=== PATIENT | male | born 1960 | race Caucasian/White ===

== ENCOUNTER 2023-08-29 00:10 | Outpatient (CLI) | payer MEDICARE, MEDICAID, SELFPAY | END 2023-08-29 00:11 | disposition home or self-care (01) | LOC: AMB 08-30 11:54 | PROVIDERS: PCP Family Medicine; Visit Provider Family Medicine | DX: S09.90XA Unspecified injury of head, initial encounter (principal); W18.30XA Fall on same level, unspecified, initial encounter; Y92.481 Parking lot as the place of occurrence of the external cause | CPT/HCPCS: A0425; A0427 ==

== ENCOUNTER 2023-08-29 00:43 | Inpatient (IN) | payer MEDICARE, MEDICAID, SELFPAY ==
[2023-08-29] VITALS (12 sets, daily range): BP systolic 136–179; BP diastolic 69–137; PULSE 60–100; RESP 14–16; TEMP 36–36.8; O2SAT 95–100; BMI 25.8; BMI 16.8
--- NOTE | 2023-08-29 01:18 | ED_ITS ---
HPI - General Adult General Chief complaint: Fall/Minor Trauma Stated complaint: Fall, hyperglycemia Time Seen by Provider: 08/29/23 00:53 Source: patient and EMS Mode of arrival: ambulatory History of Present Illness HPI narrative: 63-year-old diabetic male presents to the emergency department for evaluation after a fall. Patient reports that he slipped on ice in the [employer] parking lot, bystanders called EMS. He had asked them not to. He does admit to drinking ?a beer and a half? tonight. Denies any chest pain, syncope or dizziness prior to the fall. Of note is unseasonally warm this time of year and there really is no ice in the parking lot. EMS reports that his blood sugar was high but he is able to answer questions. There is no evidence of seizure activity according to bystanders. He does not take any blood thinners. He reports that his primary care provider is through [facility]. He has both hard of hearing and seems to have difficulty answering questions based on some intoxication and also some declining cognition. I reviewed the outside records and see that there has been some concern with erratic behavior in his apartment complex. He reports that he is his own guardian. Of note this is in the middle of the night, approximately 1:00 a.m. that he has brought in. He denies any drug use. He denies any history of psychiatric problems. He does report that he has a brother and [id number] that live in town. When I ask if they help take care of him, he Dodgers the question and is unable to give me a straight answer. His responses are otherwise slow and does not answer questions quite appropriately. He reports some mild pain to the back of his head and does have a laceration from his fall there. Denies pain in other parts of the body. Denies fevers or recent illness, no recent chest pain. He does have a history of pacemaker for an irregular heart rhythm but he cannot tell me any more details related to this. Her parts that he has a history of diabetes, reports compliance with his medications but then reports that he only takes his insulin ?when needed? he cannot tell me the last time that he took it. He tells me that he does not have any allergies but I see many listed in his medication list. He reports use of only glipizide and metformin but there are many other medications listed from his outside records. He denies drug use. No history of other recent falls or injuries. No anticoagulants. Past medical history from patient seems unreliable. Notable for hyperlipidemia, hypertension, suspected coronary artery disease and type 2 diabetes. Reports that he is a nonsmoker, has been drinking alcohol tonight. Reports that it was ?earlier?. ROS is notable for the fall which per his description and EMS does sound purely mechanical as well as laceration to the left occipital area. Related Data Home Medications Medication Instructions Recorded Confirmed acetaminophen PO 08/29/23 aspirin 81 mg capsule 81 mg PO DAILY 08/29/23 08/29/23 dapagliflozin propanediol 10 mg 10 mg PO DAILY 08/29/23 08/29/23 tablet (Farxiga) glipizide 10 mg PO BID 08/29/23 08/29/23 hydralazine 10 mg tablet 10 mg PO TID 08/29/23 08/29/23 insulin glargine 100 unit/mL (3 10 unit subcut QPM 08/29/23 08/29/23 mL) subcutaneous pen (Lantus Solostar U-100 Insulin) isosorbide mononitrate 30 mg 30 mg PO DAILY 08/29/23 08/29/23 tablet,extended release 24 hr linagliptin 5 mg tablet (Tradjenta) 5 mg PO DAILY 08/29/23 08/29/23 nitroglycerin 0.4 mg sublingual 0.4 mg sublingual Q5-15M PRN 08/29/23 08/29/23 tablet rosuvastatin 20 mg tablet (Crestor) 20 mg PO DAILY 08/29/23 08/29/23 Allergies Allergy/AdvReac Type Severity Reaction Status Date / Time pravastatin Allergy Severe Angioedema Verified 08/29/23 01:07 atenolol Allergy Mild Itchiness Verified 08/29/23 01:07 hydrochlorothiazide AdvReac Intermediate Hyponatremi Verified 08/29/23 01:07 a irbesartan AdvReac Intermediate Hyperkalemi Verified 08/29/23 01:07 a simvastatin AdvReac Intermediate Elevated Verified 08/29/23 01:07 Creatine Kinase amlodipine AdvReac Mild Insomnia Verified 08/29/23 01:07 atorvastatin AdvReac Mild Diarrhea Verified 08/29/23 01:07 lisinopril AdvReac Mild Cough Verified 08/29/23 01:07 zolpidem AdvReac Mild Sleepwalkin Verified 08/29/23 01:07 g furosemide AdvReac Unknown Verified 08/29/23 01:07 Exam Const: Vital Signs, click to edit/add: Vital Signs - 24 hr 08/29/23 00:44 08/29/23 02:30 Temperature 96.8 F L Pulse Rate 80 Pulse Rate [Pulse Oximeter] 71 Respiratory Rate 14 16 Blood Pressure 145/82 H Blood Pressure [Ri ght Upper Arm] 156/137 H Pulse Oximetry 100 95 Oxygen Delivery Me thod Room Air Documenting provider has reviewed patient's vital signs: yes Common normals: no apparent distress and alert Orientation/consciousness: Yes awake, Yes oriented to person, Yes oriented to place and Yes oriented to time Other: Hard of hearing and some mildly impaired cognition which seems chronic. Does fit with outside records. HENMT: Common normals: TM's normal bilaterally Head and scalp: normal to inspection Face and sinus: normal facial exam Tympanic membrane: TM's normal bilaterally Mouth: oral and palatal mucosa normal Throat: posterior oropharynx normal Other: 2.5 cm vertical laceration, dermal depth slight oozing to the left occipital area. Consistent with fall history. No other areas of injury. No significant hematoma or skull depression. Eye: Common normals: PERRL, EOMs intact bilaterally and conjunctivae normal General eye: normal appearance of both eyes Conjunctiva: conjunctiva(e) normal Pupil: PERRL Neck & C-Spine: Common normals: full ROM, no lymphadenopathy and no meningeal signs General: normal visual inspection Cervical spine: cervical ROM normal; no cervical spine tenderness Chest: Common normals: inspection of chest normal and palpation of chest normal Resp: Common normals: normal respiratory effort, no use of accessory muscles and clear to auscultation bilaterally Effort & inspection: able to speak in complete sentences Auscultation: clear to auscultation bilaterally Cardio: Common normals: regular rate, regular rhythm, S1 normal heart sound, S2 normal heart sound and no murmurs Rate: regular rate Rhythm: regular rhythm Heart sounds: S1 normal and S2 normal GI: Common normals: Normal to inspection, nondistended, normoactive bowel sounds present, soft to palpation, non-tender, no hepatosplenomegaly and no masses Palpation: soft and no hepatosplenomegaly Back & Pelvis: Common normals: thoracic and lumbar spine normal to inspection and no thoracic nor lumbar tenderness Extremity: Common normals: normal to inspection, full ROM, normal capillary refill and no pedal edema Neuro: Sensorium/orientation: awake, alert, oriented to person, oriented to place and oriented to time Meningeal signs: no meningeal signs Cranial nerves: CN normal except as noted Motor exam: strength 5/5 throughout and no movement abnormalities noted Other: Mild essential tremor noted Psych: Appearance: grossly normal Attitude: engaged Insight: limited Judgement: limited Skin: Narrative: Other than the laceration to the left occiput, no other areas of bruising, trauma or injury noted. Course Course ED Course: Mechanical sounding fall, cannot exclude cardiac event, neurological event, intoxication. I do have concerns about him long-term based on the descriptions from his outpatient provider but it sounds as though he is fairly close to his baseline. I would was told that his blood sugar was high based on EMS report, I suspect that he is not properly using his insulin and other medications. Will need closure of occipital wound. I do recommend alcohol level, EKG, troponin, basic electrolytes and labs. Will plan to give 10 units of subcu regular insulin if confirmatory blood sugar is elevated. Update: Blood sugar confirmed over 500. Will give 10 units subQ insulin x1. Procedure: Laceration repair. Wound was cleansed with Hibiclens, originally thought was more vertical, it is a bit still late now that I have been able to fully examine and is 2.5 cm long by about 1 cm wide. No evidence of foreign body, dermal thickness with no skull depression or large hematoma. Patient has hair that is about 8 in long. Getting stitches or arielle removed during the upcoming might be challenging for him. We discussed risks and benefits and elected to do a hair apposition technique closure. He was agreeable to this. This was performed with 2 throws and 2 tubes of Dermabond with good wound reapproximation and hemostasis. Well tolerated. Discussed wound care. Reevaluation(s) Time of Reevaluation #1: 02:26 Reevaluation #1: Updated patient on findings, need for hospitalization. His mentation does seem to be improving a little. He can better answer questions and had some witty comments. Inside I would say is moderate at this point. We started a bolus of fluids, the Dermabond is holding well and hemostatic on the back of his head. Will plan for repeat troponin and lactate. He is headed over to CT. Anticipate reviewing CT and calling hospitalist for admission. Time of Reevaluation #2: 03:09 Reevaluation #2: Hospitalist updated. Admission accepted. Borderline troponin, repeat pending. Hospitalist agrees that we should trend this. Patient continues to not have any chest pain. I believe the etiology of his acidosis is hyperglycemia but this could be multifactorial. He is likely dehydrated and still taking some metformin. I suspect there could be an acute illness that triggered this but his swabs are negative for infection. He is afebrile and not tachycardic. He has been given 1 L of fluids. Hospitalist requested addition of a serum osmolarity, this is ordered and pending. I do recommend an echo, will defer to hospitalist team to order and manage. Hospitalist team will determine next steps in management for hyperglycemia. Has been given 10 units of subcu insulin and IV fluids as initial management. The head CT shortly shows more degenerative changes than would be expected in with the reported erratic behavior in his outpatient notes, I do question if he is appropriate for continued independent living. These would all be good questions to answer once his hyperglycemia is corrected, would recommend mental status examination. Vital Signs Vital signs: Initial Vital Signs Temperature 96.8 F L 08/29/23 00:44 Temperature Source Temporal Artery Scan 08/29/23 00:44 Pulse Rate 71 08/29/23 00:44 Respiratory Rate 14 08/29/23 00:44 Blood Pressure 156/137 H 08/29/23 00:44 Blood Pressure Mean 143 H 08/29/23 00:44 Blood Pressure Position Supine 08/29/23 00:44 Pulse Oximetry 100 08/29/23 00:44 Oxygen Delivery Method Room Air 08/29/23 00:44 Vital Signs Temperature 96.8 F L 08/29/23 00:44 Pulse Rate 71 08/29/23 00:44 Respiratory Rate 14 08/29/23 00:44 Blood Pressure 156/137 H 08/29/23 00:44 Pulse Oximetry 100 08/29/23 00:44 Oxygen Delivery Method Room Air 08/29/23 00:44 Temperature 96.8 F L 08/29/23 00:44 Pulse Rate 80 08/29/23 02:30 Respiratory Rate 16 08/29/23 02:30 Blood Pressure 145/82 H 08/29/23 02:30 Pulse Oximetry 95 08/29/23 02:30 Oxygen Delivery Method Room Air 08/29/23 00:44 Medications Administered Medications: Generic Name Dose Route Start Last Admin Trade Name Tima PRN Reason Stop Dose Admin Insulin Human Regular 10 unit 08/29/23 01:28 08/29/23 01:40 Insulin Regular 100 Unit/Ml Inj SUBCUT 08/29/23 01:29 10 unit ONCE ONE Administration Medical Decision Making Lab Data Lab results reviewed: Yes I reviewed the patient's lab results Lab results narrative: Lactic acidosis with hyperglycemia. Elevated troponin without chest pain, negative viral swabs. Labs: Lab Results 08/29/23 08/29/23 08/29/23 Range/Units 01:13 01:22 01:42 WBC 8.18 (4.50-11.00) K/uL RBC 4.05 L (4.30-5.90) m/uL Hgb 12.3 L (13.5-17.5) gm/dL Hct 36.4 L (37.0-53.0) % MCV 90 (80-100) fL MCH 30 (26-34) pg MCHC 34 (32-36) gm/dL RDW Coeff of Jitendra 12.5 (11.5-15.5) % Plt Count 228 (140-440) K/uL Neut % (Auto) 86.8 H (42.0-72.0) % Lymph % (Auto) 5.9 L (20-44) % [place] % (Auto) 5.9 (0.0-11.0) % Eos % (Auto) 0.2 (0.0-7.0) % Baso % (Auto) 0.1 (0.0-3.0) % Neut # (Auto) 7.10 H (1.7-7.0) K/uL Lymph # (Auto) 0.50 L (0.90-2.90) K/uL [place] # (Auto) 0.50 (0.00-0.90) K/UL Eos # (Auto) 0.02 (0.00-0.50) K/uL Baso # (Auto) 0.01 (0.00-0.30) K/uL Abs Immat Gran (auto) 0.09 (0.00-0.30) K/uL Imm/Tot Granulo (auto) 1.1 % VBG pH 7.192 L* (7.32-7.43) VBG pCO2 49 (40-50) mmHG VBG pO2 30.6 (25-47) mmHG VBG HCO3 19 L (21-28) mmol/L Sodium 131 L (135-149) mmol/L Potassium 5.2 H (3.6-5.1) mmol/L Chloride 102 (96-114) mmol/L Carbon Dioxide 16 L (20-32) mmol/L Anion Gap 13 (7-15) mEq/L BUN 45 H (7-30) mg/dL Creatinine 2.3 H (0.5-1.5) mg/dL Estimated Creat Clear 32.02 Estimated GFR 31 ml/min Glucose 617 H* (60-115) mg/dL Lactate 5.7 H* (0.5-1.9) mmol/L Calcium 8.6 (8.4-10.6) mg/dL Total Bilirubin 0.3 (0.1-1.5) mg/dL AST 29 (12-35) U/L ALT 21 (4-50) U/L Alkaline Phosphatase 92 (40-150) U/L Troponin I 0.08 H* (0.01-0.04) ng/mL C-Reactive Protein < 0.5 L (0.5-1.0) mg/dL Total Protein 6.9 (6.0-8.3) g/dL Albumin 4.1 (3.3-5.0) g/dL Urine Color (Yellow) Urine Appearance (Clear) Urine pH (5.0-8.5) Ur Specific [place] (1.000-1.030) Urine Protein (Negative) Urine Glucose (UA) (Negative) Urine Ketones (Negative) Urine Blood (Negative) Urine Nitrite (Negative) Urine Bilirubin (Negative) Urine Urobilinogen (0.2-1.0) Ur Leukocyte Esterase (Negative) Urine RBC (0-2) Urine WBC (0-5) Ur Squamous Epith Cells (None-Few) Urine Bacteria (None) Urine Opiates Screen (Negative) Ur Oxycodone Screen (Negative) Urine Methadone Screen (Negative) Ur Barbiturates Screen (Negative) U Tricyclic Antidepress (Negative) Ur Phencyclidine Scrn (Negative) Ur Amphetamines Screen (Negative) U Methamphetamines Scrn (Negative) U Benzodiazepines Scrn (Negative) Urine Cocaine Screen (Negative) U Marijuana (THC) Screen (Negative) Ur Drug Screen Comment Ethyl Alcohol 0.03 (0.01-0.03) % SARS-CoV-2 (PCR) Negative SARS-CoV-2 (Negative) Influenza Type A (PCR) Negative PCR FLU A (Negative) Influenza Type B (PCR) Negative PCR FLU B (Negative) RSV (PCR) Negative PCR RSV (Negative) Lab Acknowledgement Test Added POC Troponin I 0.11 H (0.01-0.04) ng/ml 08/29/23 08/29/23 Range/Units 01:58 02:04 WBC (4.50-11.00) K/uL RBC (4.30-5.90) m/uL Hgb (13.5-17.5) gm/dL Hct (37.0-53.0) % MCV (80-100) fL MCH (26-34) pg MCHC (32-36) gm/dL RDW Coeff of Jitendra (11.5-15.5) % Plt Count (140-440) K/uL Neut % (Auto) (42.0-72.0) % Lymph % (Auto) (20-44) % [place] % (Auto) (0.0-11.0) % Eos % (Auto) (0.0-7.0) % Baso % (Auto) (0.0-3.0) % Neut # (Auto) (1.7-7.0) K/uL Lymph # (Auto) (0.90-2.90) K/uL [place] # (Auto) (0.00-0.90) K/UL Eos # (Auto) (0.00-0.50) K/uL Baso # (Auto) (0.00-0.30) K/uL Abs Immat Gran (auto) (0.00-0.30) K/uL Imm/Tot Granulo (auto) % VBG pH (7.32-7.43) VBG pCO2 (40-50) mmHG VBG pO2 (25-47) mmHG VBG HCO3 (21-28) mmol/L Sodium (135-149) mmol/L Potassium (3.6-5.1) mmol/L Chloride (96-114) mmol/L Carbon Dioxide (20-32) mmol/L Anion Gap (7-15) mEq/L BUN (7-30) mg/dL Creatinine (0.5-1.5) mg/dL Estimated Creat Clear Estimated GFR ml/min Glucose (60-115) mg/dL Lactate (0.5-1.9) mmol/L Calcium (8.4-10.6) mg/dL Total Bilirubin (0.1-1.5) mg/dL AST (12-35) U/L ALT (4-50) U/L Alkaline Phosphatase (40-150) U/L Troponin I (0.01-0.04) ng/mL C-Reactive Protein (0.5-1.0) mg/dL Total Protein (6.0-8.3) g/dL Albumin (3.3-5.0) g/dL Urine Color Yellow (Yellow) Urine Appearance Clear (Clear) Urine pH 5.0 (5.0-8.5) Ur Specific [place] 1.015 (1.000-1.030) Urine Protein 3+ A (Negative) Urine Glucose (UA) 2+ A (Negative) Urine Ketones Negative (Negative) Urine Blood 1+ A (Negative) Urine Nitrite Negative (Negative) Urine Bilirubin Negative (Negative) Urine Urobilinogen 0.2 (0.2-1.0) Ur Leukocyte Esterase Negative (Negative) Urine RBC 0-2 (0-2) Urine WBC 0-2 (0-5) Ur Squamous Epith Cells Few (None-Few) Urine Bacteria None (None) Urine Opiates Screen Negative (Negative) Ur Oxycodone Screen Negative (Negative) Urine Methadone Screen Negative (Negative) Ur Barbiturates Screen Negative (Negative) U Tricyclic Antidepress Negative (Negative) Ur Phencyclidine Scrn Negative (Negative) Ur Amphetamines Screen Negative (Negative) U Methamphetamines Scrn Negative (Negative) U Benzodiazepines Scrn Negative (Negative) Urine Cocaine Screen Negative (Negative) U Marijuana (THC) Screen Negative (Negative) Ur Drug Screen Comment See Note Ethyl Alcohol (0.01-0.03) % SARS-CoV-2 (PCR) (Negative) Influenza Type A (PCR) (Negative) Influenza Type B (PCR) (Negative) RSV (PCR) (Negative) Lab Acknowledgement Test Added POC Troponin I (0.01-0.04) ng/ml Imaging Data CT scan - head: Attestation: I have reviewed the pertinent imaging results. My impression: No obvious bleed or mass. Certainly larger ventricles and more degenerative changes than would be expected for someone his age. Radiologist's impression: IMPRESSION: 1. No acute findings. 2. The ventricles are somewhat enlarged in relation to the degree of cerebral atrophy. Consider normal pressure hydrocephalus. 3. Nonspecific white matter disease, typical of chronic microvascular disease. ECG Data Attestation: I personally reviewed and interpreted this ECG as follows: Prior ECG tracings: not available for review Interpretation: Paced rhythm with signs of an incomplete please right bundle branch block. It is really nondiagnostic for ischemia, abnormalities appear to be secondary to paced rhythm rather than pathology. [place] is normal. Rate around 75. Discharge Plan Discharge Clinical Impression: Acute lactic acidosis, Acute hyperglycemia, Acute renal insufficiency, Elevated troponin, Laceration of head Patient Disposition: Admitted As Inpatient Condition: Stable
[2023-08-29 01:30] LABS: Basophils Percent Auto 0.1 % (0.0-3.0); Eosinophils Percent Auto 0.2 % (0.0-7.0); Hematocrit 36.4 % (37.0-53.0); Hemoglobin* 12.3 gm/dL (13.5-17.5); Lymphocytes Percent Auto 5.9 % (20-44); Mean Corpuscular HGB Conc 34 gm/dL (32-36); Mean Corpuscular Hemoglobin 30 pg (26-34); Mean Corpuscular Volume 90 fL (80-100); Monocytes Percent Auto 5.9 % (0.0-11.0); Neutrophils Percent Auto 86.8 % (42.0-72.0); Platelet Count* 228 K/uL (140-440); RDW Coefficient of Variation % 12.5 % (11.5-15.5); Red Blood Count 4.05 m/uL (4.30-5.90); White Blood Count* 8.18 K/uL (4.50-11.00)
[2023-08-29 01:31] LABS: Basophils Absolute Auto 0.01 K/uL (0.00-0.30); Eosinophils Absolute Auto 0.02 K/uL (0.00-0.50); Immature Granulocytes Abs Auto 0.09 K/uL (0.00-0.30); Immature Granulocytes Pct Auto 1.1 %
[2023-08-29 01:37] LABS: Lactate* 5.7 mmol/L (0.5-1.9)
[2023-08-29 01:40] LABS: Slide Review Reflex No
[2023-08-29 01:43] LABS: Albumin* 4.1 g/dL (3.3-5.0); Chloride* 102 mmol/L (96-114); Troponin, Point-of-Care* 0.11 ng/ml (0.01-0.04)
[2023-08-29 01:44] LABS: Potassium* 5.2 mmol/L (3.6-5.1); Sodium* 131 mmol/L (135-149)
[2023-08-29 01:46] LABS: Creatinine* 2.3 mg/dL (0.5-1.5); Est. Creatinine Clearance* 32.02; Estimated Glomerular Filt Rate 31 ml/min
[2023-08-29 01:47] LABS: Alanine Aminotransferase* 21 U/L (4-50); Alkaline Phosphatase* 92 U/L (40-150); Aspartate Amino Transferase* 29 U/L (12-35); Bilirubin Total* 0.3 mg/dL (0.1-1.5); Blood Urea Nitrogen* 45 mg/dL (7-30); Calcium* 8.6 mg/dL (8.4-10.6); Carbon Dioxide* 16 mmol/L (20-32); Ethanol* 0.03 % (0.01-0.03); Total Protein* 6.9 g/dL (6.0-8.3)
[2023-08-29 02:01] LABS: Anion Gap 13 mEq/L (7-15)
[2023-08-29 02:03] LABS: Glucose* 617 mg/dL (60-115)
[2023-08-29 02:04] LABS: C Reactive Protein* < 0.5 mg/dL (0.5-1.0)
--- NOTE | 2023-08-29 02:06 | CRLHL7_ITS ---
For Patients: As a result of the Century Cures Act, medical imaging exams and procedure reports are released immediately into your electronic medical record. You may view this report before your referring provider. If you have questions, please contact your health care provider. INDICATION: Fall, hit back of head, altered mental status TECHNIQUE: Head CT without contrast. COMPARISON: None FINDINGS: CSF spaces: The ventricles are somewhat enlarged in relation to the degree of cerebral atrophy. Brain parenchyma: There are nonspecific low attenuation white matter changes consistent with chronic microvascular disease. No sign of mass, hemorrhage, or midline shift. Midline posterior fossa arachnoid cyst. Skull base and calvarium: The visualized paranasal sinuses and mastoid air cells demonstrate no acute or significant findings. The visualized orbits are grossly unremarkable. No skull fractures. There is intracranial atherosclerosis. IMPRESSION: 1. No acute findings. 2. The ventricles are somewhat enlarged in relation to the degree of cerebral atrophy. Consider normal pressure hydrocephalus. 3. Nonspecific white matter disease, typical of chronic microvascular disease. Please note that all CT scans at this facility use dose modulation, iterative reconstruction, and/or weight-based dosing when appropriate to reduce radiation dose to as low as reasonably achievable. Dictated by Kavya Jorge MD @ 08/29/2023 3:58:19 AM (Electronically Signed)
[2023-08-29 02:11] LABS: PCO2 VBG 49 mmHG (40-50)
[2023-08-29 02:12] LABS: HCO3 VBG 19 mmol/L (21-28); PO2 VBG 30.6 mmHG (25-47)
[2023-08-29 02:12] LABS: Appearance Urine Clear (Clear); Bilirubin Urine Negative (Negative); Blood Urine 1+ (Negative); Color Urine Yellow (Yellow); Glucose Urine 2+ (Negative); Ketones Urine Negative (Negative); Leukocyte Esterase Urine Negative (Negative); Nitrite Urine Negative (Negative); Protein Urine 3+ (Negative); Specific Gravity Urine 1.015 (1.000-1.030); Urobilinogen Urine 0.2 (0.2-1.0)
[2023-08-29 02:13] LABS: pH VBG 7.192 (7.32-7.43)
[2023-08-29 02:14] LABS: Amphetamine Screen Urine Negative (Negative); Barbiturate Screen Urine Negative (Negative); Benzodiazepines Screen Urine Negative (Negative); Cannabinoid Screen Urine Negative (Negative); Cocaine Screen Urine Negative (Negative); Methadone Screen Urine Negative (Negative); Methamphetamines Screen Urine Negative (Negative); Opiate Screen Urine Negative (Negative); Oxycodone Screen Urine Negative (Negative); Phencyclidine Screen Urine Negative (Negative); Tricyclic Antidepressant Urine Negative (Negative)
[2023-08-29] MEDS: 0.9 % SODIUM CHLORIDE 1000 ml 1,000 ML 500 ML IV (02:30)
[2023-08-29 02:44] LABS: RBC Urine 0-2 (0-2); Squamous Epithelial Cell Urine Few (None-Few); WBC Urine 0-2 (0-5)
[2023-08-29 02:59] LABS: Troponin I* 0.08 ng/mL (0.01-0.04)
[2023-08-29 03:06] LABS: PCR FLU A Negative PCR FLU A (Negative); PCR FLU B Negative PCR FLU B (Negative); PCR RSV Negative PCR RSV (Negative)
[2023-08-29 03:17] LABS: SARS PCR* Negative SARS-CoV-2 (Negative)
--- NOTE | 2023-08-29 03:18 | PC.NURSE ---
report given to Sara Torres/Consuelo SMITH. patient going to room 260
--- NOTE | 2023-08-29 03:23 | PC.NURSE ---
patient brought to [facility] by aircraft structural repairer, all belongings sent with patinet. patient alert and awake at time of transport with even RR
--- NOTE | 2023-08-29 04:49 | W.PM.THH&P_ITS ---
Telehealth- H&P: HPI History of Present Illness Time Seen by Provider: 04:07 Date Seen: 08/29/23 Chief complaint: Fall, hyperglycemia Narrative: Abhijit Prakash is seen as an Interactive Telehealth visit. Abhijit Prakash is a 63 yGentleman with history of insulin-dependent type 2 diabetes with poor medical compliance, stable atherosclerotic coronary artery disease with prior CA, pacemaker, COPD, congestive heart failure with reduced EF, chronic kidney disease stage IV and essential hypertension who apparently had had 1 beer this evening and was walking out in the parking lot slipped on the ice and he hit his head against the car. There was no loss of consciousness. He sustained a contusion over the occiput. He presented to the emergency room tonight and was found to have hyperglycemia and this 600 range as well as a elevated anion gap acidosis with elevated lactate. Patient is a very poor historian so getting details about his recent health conditions was difficult to tease out. I was able to review his primary notes and it appears that he has had some mental health concerns of late with bizarre behaviors at his place of living that been communicated to his primary. There have been periods of confusion and abnormal behaviors noted by those around him. He denies any chest pain or breathing problems. He denies any lightheadedness syncope or presyncope. Denies any recent illnesses. States he only had 1 drink. Patient is extremely hard of hearing and is confused at this time for being able to get reliable history is difficult. He is being admitted for further care. He received 1 L of normal saline in the emergency room as well as 10 units of regular insulin. Review of Systems Narrative: Unable to do reliable review of systems due to his baseline confusion as well as severe hard of hearing without his hearing aids present a generalized review of systems he denied any major complaints other than a little bit of pain on the back of his head Meds Home Medications and Allergies Home Medications Medication Instructions Recorded Confirmed Type acetaminophen PO 08/29/23 History aspirin 81 mg capsule 81 mg PO DAILY 08/29/23 08/29/23 History dapagliflozin propanediol 10 mg 10 mg PO DAILY 08/29/23 08/29/23 History tablet (Farxiga) glipizide 10 mg PO BID 08/29/23 08/29/23 History hydralazine 10 mg tablet 10 mg PO TID 08/29/23 08/29/23 History insulin glargine 100 unit/mL (3 10 unit subcut QPM 08/29/23 08/29/23 History mL) subcutaneous pen (Lantus Solostar U-100 Insulin) isosorbide mononitrate 30 mg 30 mg PO DAILY 08/29/23 08/29/23 History tablet,extended release 24 hr linagliptin 5 mg tablet (Tradjenta) 5 mg PO DAILY 08/29/23 08/29/23 History nitroglycerin 0.4 mg sublingual 0.4 mg sublingual Q5-15M PRN 08/29/23 08/29/23 History tablet rosuvastatin 20 mg tablet (Crestor) 20 mg PO DAILY 08/29/23 08/29/23 History Allergies Allergy/AdvReac Type Severity Reaction Status Date / Time pravastatin Allergy Severe Angioedema Verified 08/29/23 01:07 atenolol Allergy Mild Itchiness Verified 08/29/23 01:07 hydrochlorothiazide AdvReac Intermediate Hyponatremi Verified 08/29/23 01:07 a irbesartan AdvReac Intermediate Hyperkalemi Verified 08/29/23 01:07 a simvastatin AdvReac Intermediate Elevated Verified 08/29/23 01:07 Creatine Kinase amlodipine AdvReac Mild Insomnia Verified 08/29/23 01:07 atorvastatin AdvReac Mild Diarrhea Verified 08/29/23 01:07 lisinopril AdvReac Mild Cough Verified 08/29/23 01:07 zolpidem AdvReac Mild Sleepwalkin Verified 08/29/23 01:07 g furosemide AdvReac Unknown Verified 08/29/23 01:07 Exam Narrative Exam Narrative: Physical Exam GENERAL: ?vital signs reviewed, Thin, awake extremely hard of hearing confused to time place year. HEENT: no distress contusion over the occiputpupils are equal round and reacti ve to light, extraocular movements are grossly within normal limits and oral mucosa is moist. NECK: Supple without lymphadenopathy or thyromegaly according to nursing staff e xamination observation HEART: Regular rate and rhythm without any rubs, murmurs, or gallops. LUNGS: Coarse breath sounds without tachypnea or distress or retractions ABDOMEN: Observation from nurse assisted exam, abdomen appears soft, nontender, and nondistended with Positive bowel sounds noted. EXTREMITIES: Strength and sensation is observed to be grossly within normal limits in the upper and lower extremities.? No focal strength deficit is observed. SKIN:? Observed warm and dry with color normal Const Vital Signs, click to edit/add: Vital Signs - 24 hr 08/29/23 00:44 08/29/23 02:30 Temperature 96.8 F L Pulse Rate 80 Pulse Rate [Pulse Oximeter] 71 Respiratory Rate 14 16 Blood Pressure 145/82 H Blood Pressure [Right Upper Arm] 156/137 H Pulse Oximetry 100 95 Oxygen Delivery Method Room Air Hospitalist - H&P: Result Labs Labs: Laboratory Results - last 24 hr 08/29/23 08/29/23 08/29/23 01:13 01:22 01:42 WBC 8.18 RBC 4.05 L Hgb 12.3 L Hct 36.4 L MCV 90 MCH 30 MCHC 34 RDW Coeff of Jitendra 12.5 Plt Count 228 Neut % (Auto) 86.8 H Lymph % (Auto) 5.9 L [place] % (Auto) 5.9 Eos % (Auto) 0.2 Baso % (Auto) 0.1 Neut # (Auto) 7.10 H Lymph # (Auto) 0.50 L [place] # (Auto) 0.50 Eos # (Auto) 0.02 Baso # (Auto) 0.01 Abs Immat Gran (auto) 0.09 Imm/Tot Granulo (auto) 1.1 VBG pH 7.192 L* VBG pCO2 49 VBG pO2 30.6 VBG HCO3 19 L Sodium 131 L Potassium 5.2 H Chloride 102 Carbon Dioxide 16 L Anion Gap 13 BUN 45 H Creatinine 2.3 H Estimated Creat Clear 32.02 Estimated GFR 31 Glucose 617 H* Lactate 5.7 H* Calcium 8.6 Total Bilirubin 0.3 AST 29 ALT 21 Alkaline Phosphatase 92 Troponin I 0.08 H* C-Reactive Protein < 0.5 L Total Protein 6.9 Albumin 4.1 Urine Color Urine Appearance Urine pH Ur Specific [place] Urine Protein Urine Glucose (UA) Urine Ketones Urine Blood Urine Nitrite Urine Bilirubin Urine Urobilinogen Ur Leukocyte Esterase Urine RBC Urine WBC Ur Squamous Epith Cells Urine Bacteria Urine Opiates Screen Ur Oxycodone Screen Urine Methadone Screen Ur Barbiturates Screen U Tricyclic Antidepress Ur Phencyclidine Scrn Ur Amphetamines Screen U Methamphetamines Scrn U Benzodiazepines Scrn Urine Cocaine Screen U Marijuana (THC) Screen Ur Drug Screen Comment Ethyl Alcohol 0.03 SARS-CoV-2 (PCR) Negative SARS-CoV-2 Influenza Type A (PCR) Negative PCR FLU A Influenza Type B (PCR) Negative PCR FLU B RSV (PCR) Negative PCR RSV Lab Acknowledgement Test Added POC Troponin I 0.11 H 08/29/23 08/29/23 08/29/23 01:58 02:04 04:44 WBC RBC Hgb Hct MCV MCH MCHC RDW Coeff of Jitendra Plt Count Neut % (Auto) Lymph % (Auto) [place] % (Auto) Eos % (Auto) Baso % (Auto) Neut # (Auto) Lymph # (Auto) [place] # (Auto) Eos # (Auto) Baso # (Auto) Abs Immat Gran (auto) Imm/Tot Granulo (auto) VBG pH 7.280 L VBG pCO2 51 H VBG pO2 20.3 L VBG HCO3 24 Sodium Potassium Chloride Carbon Dioxide Anion Gap BUN Creatinine Estimated Creat Clear Estimated GFR Glucose Lactate 2.0 H Calcium Total Bilirubin AST ALT Alkaline Phosphatase Troponin I C-Reactive Protein Total Protein Albumin Urine Color Yellow Urine Appearance Clear Urine pH 5.0 Ur Specific [place] 1.015 Urine Protein 3+ A Urine Glucose (UA) 2+ A Urine Ketones Negative Urine Blood 1+ A Urine Nitrite Negative Urine Bilirubin Negative Urine Urobilinogen 0.2 Ur Leukocyte Esterase Negative Urine RBC 0-2 Urine WBC 0-2 Ur Squamous Epith Cells Few Urine Bacteria None Urine Opiates Screen Negative Ur Oxycodone Screen Negative Urine Methadone Screen Negative Ur Barbiturates Screen Negative U Tricyclic Antidepress Negative Ur Phencyclidine Scrn Negative Ur Amphetamines Screen Negative U Methamphetamines Scrn Negative U Benzodiazepines Scrn Negative Urine Cocaine Screen Negative U Marijuana (THC) Screen Negative Ur Drug Screen Comment See Note Ethyl Alcohol SARS-CoV-2 (PCR) Influenza Type A (PCR) Influenza Type B (PCR) RSV (PCR) Lab Acknowledgement Test Added Test Added POC Troponin I ECG ECG interpretation date: 08/29/23 ECG interpretation time: 05:05 Interpretation: EKG showed atrial paced rhythm 100% capture narrow QRS. LVH by voltage. Probable old septal infarct. QT corrected 0.42 no acute ischemia Imaging CT scan - head: Radiologist's impression: IMPRESSION: 1. No acute findings. 2. The ventricles are somewhat enlarged in relation to the degree of cerebral atrophy. Consider normal pressure hydrocephalus. 3. Nonspecific white matter disease, typical of chronic microvascular disease. Assessment and Plan Assessment and plan (1) Laceration of head: Status: Acute (2) Acute metabolic encephalopathy: Status: Acute (3) Fall: Status: Acute (4) Chronic kidney disease, stage 4 (severe): Status: Acute (5) Diabetes type 2, uncontrolled: Status: Acute (6) Hyperglycemia: Status: Acute (7) Lactic acidosis due to diabetes mellitus: Status: Acute (8) COPD (chronic obstructive pulmonary disease): Status: Acute (9) CHF (congestive heart failure): Status: Acute (10) Elevated troponin: Status: Acute (11) ASCVD (arteriosclerotic cardiovascular disease): Status: Acute Plan Mr. Webster is a 63-year-old gentleman who presented to the emergency room today after reported slip on the ice with a closed head injury sustaining a small laceration that was repaired in the emergency room. He was significantly confused consistent with a metabolic encephalopathy and found to have profound nonketotic hyperglycemia and lactic acidosis. Patient is a very poor historian due to combination of factors including severely hard of hearing without his hearing aids, acute metabolic encephalopathy with disorientation, and by review of his medical records report of some recent mental health or cognitive dysfunction. He has pre-existing medical problems including poorly controlled insulin-dependent diabetes, chronic kidney disease stage IV presumably diabetic nephropathy, essential hypertension and history of atherosclerotic coronary artery disease with prior CA and a pacemaker in addition he has COPD 1) admit to the hospital anticipate at least 2 midnight stay for correction of his metabolic abnormalities and evaluation of safety 2. IV hydration and sliding scale insulin. He is prescribed Lantus 10 units but there is a question of his compliance. Will initiate Lantus 10 units and continue sliding scale insulin at this time 3. DC glipizide 4. Social work consult for evaluation of home safety. May need to consider mental health evaluation 5. Physical therapy and Occupational Therapy evaluation 6. DVT prophylaxis will be Flowtron's initially given his history of head trauma 7. Continue aspirin 81 mg a day and isosorbide 30 mg daily and his rosuvastatin 8. Repeat troponin. At this time I think the most likely cause of this troponin elevation is related to his chronic kidney disease and history of congestive heart failure 9. Unable to accurately assess his choices regarding CODE STATUS so he will be default full code 10. Pharmacy to reconcile medications preferably through the [employer] system to see it what his current regimen should be Telehealth: Statement Statement Telehealth Visit: Today's History and Physical is provided via interactive telehealth by Jovany Thurston MD.? Patient is located at [facility].? Provider is located at [facility].? Nursing staff assisted with the patient's exam. The visit being done today meets criteria for a telehealth visit and the patient or patient?s parent/guardian is aware the visit is a telehealth visit. Camera Start Time: 04:07 Camera End Time: 04:29
[2023-08-29 04:55] LABS: HCO3 VBG 24 mmol/L (21-28); PCO2 VBG 51 mmHG (40-50); PO2 VBG 20.3 mmHG (25-47)
[2023-08-29] MEDS: 0.9 % SODIUM CHLORIDE 1000 ml 1,000 ML 150 ML IV (06:36)
[2023-08-29] MEDS: SODIUM CHLORIDE 0.9 % (FLUSH) 10 ML SYRINGE 5 ML IVF ×2 (06:38→20:18)
[2023-08-29] MEDS: ASPIRIN 81 MG TAB.CHEW 324 MG PO (06:59)
[2023-08-29 07:24] LABS: Chloride* 108 mmol/L (96-114); Potassium* 4.5 mmol/L (3.6-5.1); Sodium* 137 mmol/L (135-149)
[2023-08-29 07:27] LABS: Anion Gap 7 mEq/L (7-15); Carbon Dioxide* 22 mmol/L (20-32); Creatinine* 2.1 mg/dL (0.5-1.5); Est. Creatinine Clearance* 25.65; Estimated Glomerular Filt Rate 34 ml/min
[2023-08-29 07:28] LABS: Blood Urea Nitrogen* 45 mg/dL (7-30); Calcium* 8.9 mg/dL (8.4-10.6); Glucose* 256 mg/dL (60-115); Magnesium* 1.7 mg/dL (1.5-2.6)
--- NOTE | 2023-08-29 07:56 | PC.NURSE ---
Pt alert and oriented to self only. When asked what month it is he stated April. Afebrile. Pt reports 3/10 headache pain, managed with scheduled medications. Pt denies chest pain, SOB, and N/V. Pt is up SBA with walker. Pt expressed concerns about being evaluated and locked in a moran by the doctor. Pt was given reassurance that the doctor was going to evaluate his head injury not to lock him in or send him to a moran. Pt responded Good, because he is going to have trouble if he tries. Pt is extremely [place], he wears hearing aids but did not have them with on admission.
[2023-08-29] MEDS: 5 % DEX/0.45 SOD CHL+KCL20 mEq 1,000 ML 125 ML IV (08:29)
--- NOTE | 2023-08-29 09:03 | PM.IMPN1 ---
Progress Note: A&P Assessment and plan (1) Laceration of head: Problem details: - 2/2 fall on 08/28, negative head CT in ED - hemostatic 08/29 Status: Acute (2) Elevated troponin: Problem details: - ddx: NSTEMI, demand ischemia from intoxication/fall/acidosis - history of CHF and ASCVD, s/p pacemaker placement - asymptomatic - trend troponin, TTE 08/29 Status: Acute (3) Lactic acidosis due to diabetes mellitus: Problem details: - vs starvation ketoacidosis vs ETOH - lacate and pH normalized on 08/29 - continue to follow blood sugars, VBG, lactate Status: Acute (4) Acute metabolic encephalopathy: Problem details: - vs chronic cognitive impairment with progression - RPR and ammonia pending - concern from staff at [address] [place] [address] that patient has had decline in function and cognition over the past 3-6 months - therapies ordered, family updated; will likely require higher level of care facility upon discharge - appreciate input from social work team Status: Acute (5) Chronic kidney disease, stage 4 (severe): Problem details: - outpatient creatinine baseline of 2.5-2.7 Status: Inactive (6) Diabetes type 2, uncontrolled: Problem details: - hyperglycemia on arrival to ED 08/28, unclear control as an outpatient (last A1C 7.3 in March 2023), unlikely compliant with medications - BG fell quickly after insulin and IVFs, then stabilized around 180-200 - continue Accuchecks and SSI, trend numbers prior to deciding outpatient managment - hold Metformin (unclear if patient is actually taking this) given lactic acidosis Status: Inactive (7) Alcohol abuse: Problem details: - chronic, per sister in law - patient has been in treatment before, was drinking on admission 08/28 - on CIWA - Gabapentin initiated 08/29 Status: Acute (8) Noncompliance: Problem details: - unclear compliance with medications at home - continue BP medications, will need support upon d/c Status: Acute Plan - per above - trend troponin, TTE - follow BG, VBG - evaluate cognition further - reviewed findings and plan of care with [facility]; family plans to visit today Subjective Date Seen: 08/29/23 Interval history: Abhijit was admitted on 08/28, BIBA after being found intoxicated in [employer] parking lot with a head laceration. In the ED, he was found to be confused, hyperglycemic, and acidotic. This morning, patient has no concerns for the hospitalist team; specifically denies CP or dyspnea. He did have some paranoid behaviors overnight. Abhijit is unable to tell me much of his history, does not remember where he lives. Via chart review, we were able to ascertain that he lives in the apartments at [facility]. I was able to chat with Zoey there, who notes that over the past 3-4 months he has had significant decline in ability to problem solve. He has been paranoid intermittently with confusion; once left on his water and flat of the apartment below him. He has never been physically unsafe. They have contacted Adult protective Services regarding his decline in self-care. Via Rianna, I was able to obtain the phone number for patient's brother Kristian. Abhijit gave me permission to discuss his care with Kristian and Homa. Homa answered the phone when I called, noted that Kristian also has some cognitive impairment. They have not seen Abhijit in the past 3-4 months, and were not even sure where he was living at this time. She was able to provide this history of alcohol overuse and poor medication compliance. Exam Narrative: Exam Narrative: GEN: Alert, thin, appears to have cognitive impairment (unclear how much of this is related to hearing difficulties) HEENT: Hematoma on back of head, hemostatic. PERRL and EOMIs bilaterally, no scleral icterus CV: RRR, No concerning murmurs, pacemaker noted in chest wall R: LCTA bilaterally without concerning wheezing, air movement is adequate Ext: thin, wwp, no concerning edema, + clubbing bilateral upper extremities Neuro: No focal deficits, no resting tremor, gait not observed Psych: No agitation or paranoia during my visit Const: Vital Signs, click to edit/add: Vital Signs - 24 hr 08/29/23 00:44 08/29/23 02:30 08/29/23 03:40 Temperature 96.8 F L 98.3 F Pulse Rate 80 Pulse Rate [Pulse Oximeter] 71 64 Respiratory Rate 14 16 16 Blood Pressure 145/82 H Blood Pressure [Ri ght Arm] 179/93 H Blood Pressure [Ri ght Upper Arm] 156/137 H Pulse Oximetry 100 95 100 Oxygen Delivery Me thod Room Air Room Air 08/29/23 03:40 08/29/23 08:03 08/29/23 08:09 Temperature 97.5 F L Pulse Rate 61 Pulse Rate [Pulse Oximeter] 68 Respiratory Rate 16 14 Blood Pressure Blood Pressure [Ri ght Arm] 153/83 H Blood Pressure [Ri ght Upper Arm] Pulse Oximetry 100 98 Oxygen Delivery Me thod Room Air Room Air Labs Labs: Laboratory Results - last 24 hr 08/29/23 08/29/23 08/29/23 01:13 01:22 01:42 WBC 8.18 RBC 4.05 L Hgb 12.3 L Hct 36.4 L MCV 90 MCH 30 MCHC 34 RDW Coeff of Jitendra 12.5 Plt Count 228 Neut % (Auto) 86.8 H Lymph % (Auto) 5.9 L [place] % (Auto) 5.9 Eos % (Auto) 0.2 Baso % (Auto) 0.1 Neut # (Auto) 7.10 H Lymph # (Auto) 0.50 L [place] # (Auto) 0.50 Eos # (Auto) 0.02 Baso # (Auto) 0.01 Abs Immat Gran (auto) 0.09 Imm/Tot Granulo (auto) 1.1 VBG pH 7.192 L* VBG pCO2 49 VBG pO2 30.6 VBG HCO3 19 L Sodium 131 L Potassium 5.2 H Chloride 102 Carbon Dioxide 16 L Anion Gap 13 BUN 45 H Creatinine 2.3 H Estimated Creat Clear 32.02 Estimated GFR 31 Glucose 617 H* Lactate 5.7 H* Calcium 8.6 Magnesium Total Bilirubin 0.3 AST 29 ALT 21 Alkaline Phosphatase 92 Troponin I 0.08 H* C-Reactive Protein < 0.5 L Total Protein 6.9 Albumin 4.1 Urine Color Urine Appearance Urine pH Ur Specific [place] Urine Protein Urine Glucose (UA) Urine Ketones Urine Blood Urine Nitrite Urine Bilirubin Urine Urobilinogen Ur Leukocyte Esterase Urine RBC Urine WBC Ur Squamous Epith Cells Urine Bacteria Urine Opiates Screen Ur Oxycodone Screen Urine Methadone Screen Ur Barbiturates Screen U Tricyclic Antidepress Ur Phencyclidine Scrn Ur Amphetamines Screen U Methamphetamines Scrn U Benzodiazepines Scrn Urine Cocaine Screen U Marijuana (THC) Screen Ur Drug Screen Comment Ethyl Alcohol 0.03 SARS-CoV-2 (PCR) Negative SARS-CoV-2 Influenza Type A (PCR) Negative PCR FLU A Influenza Type B (PCR) Negative PCR FLU B RSV (PCR) Negative PCR RSV Lab Acknowledgement Test Added POC Troponin I 0.11 H 08/29/23 08/29/23 08/29/23 01:58 02:04 04:40 WBC RBC Hgb Hct MCV MCH MCHC RDW Coeff of Jitendra Plt Count Neut % (Auto) Lymph % (Auto) [place] % (Auto) Eos % (Auto) Baso % (Auto) Neut # (Auto) Lymph # (Auto) [place] # (Auto) Eos # (Auto) Baso # (Auto) Abs Immat Gran (auto) Imm/Tot Granulo (auto) VBG pH VBG pCO2 VBG pO2 VBG HCO3 Sodium Potassium Chloride Carbon Dioxide Anion Gap BUN Creatinine Estimated Creat Clear Estimated GFR Glucose Lactate Calcium Magnesium Total Bilirubin AST ALT Alkaline Phosphatase Troponin I 0.30 H* C-Reactive Protein Total Protein Albumin Urine Color Yellow Urine Appearance Clear Urine pH 5.0 Ur Specific [place] 1.015 Urine Protein 3+ A Urine Glucose (UA) 2+ A Urine Ketones Negative Urine Blood 1+ A Urine Nitrite Negative Urine Bilirubin Negative Urine Urobilinogen 0.2 Ur Leukocyte Esterase Negative Urine RBC 0-2 Urine WBC 0-2 Ur Squamous Epith Cells Few Urine Bacteria None Urine Opiates Screen Negative Ur Oxycodone Screen Negative Urine Methadone Screen Negative Ur Barbiturates Screen Negative U Tricyclic Antidepress Negative Ur Phencyclidine Scrn Negative Ur Amphetamines Screen Negative U Methamphetamines Scrn Negative U Benzodiazepines Scrn Negative Urine Cocaine Screen Negative U Marijuana (THC) Screen Negative Ur Drug Screen Comment See Note Ethyl Alcohol SARS-CoV-2 (PCR) Influenza Type A (PCR) Influenza Type B (PCR) RSV (PCR) Lab Acknowledgement Test Added POC Troponin I 08/29/23 04:44 WBC RBC Hgb Hct MCV MCH MCHC RDW Coeff of Jitendra Plt Count Neut % (Auto) Lymph % (Auto) [place] % (Auto) Eos % (Auto) Baso % (Auto) Neut # (Auto) Lymph # (Auto) [place] # (Auto) Eos # (Auto) Baso # (Auto) Abs Immat Gran (auto) Imm/Tot Granulo (auto) VBG pH 7.280 L VBG pCO2 51 H VBG pO2 20.3 L VBG HCO3 24 Sodium 137 Potassium 4.5 Chloride 108 Carbon Dioxide 22 Anion Gap 7 BUN 45 H Creatinine 2.1 H Estimated Creat Clear 25.65 Estimated GFR 34 Glucose 256 H Lactate 2.0 H Calcium 8.9 Magnesium 1.7 Total Bilirubin AST ALT Alkaline Phosphatase Troponin I C-Reactive Protein Total Protein Albumin Urine Color Urine Appearance Urine pH Ur Specific [place] Urine Protein Urine Glucose (UA) Urine Ketones Urine Blood Urine Nitrite Urine Bilirubin Urine Urobilinogen Ur Leukocyte Esterase Urine RBC Urine WBC Ur Squamous Epith Cells Urine Bacteria Urine Opiates Screen Ur Oxycodone Screen Urine Methadone Screen Ur Barbiturates Screen U Tricyclic Antidepress Ur Phencyclidine Scrn Ur Amphetamines Screen U Methamphetamines Scrn U Benzodiazepines Scrn Urine Cocaine Screen U Marijuana (THC) Screen Ur Drug Screen Comment Ethyl Alcohol SARS-CoV-2 (PCR) Influenza Type A (PCR) Influenza Type B (PCR) RSV (PCR) Lab Acknowledgement Test Added POC Troponin I
[2023-08-29 09:17] LABS: HCO3 VBG 24 mmol/L (21-28); Lactate* 0.9 mmol/L (0.5-1.9); PCO2 VBG 46 mmHG (40-50); PO2 VBG 20.2 mmHG (25-47); pH VBG 7.323 (7.32-7.43)
[2023-08-29 11:50] LABS: Hemoglobin A1C* 8.5 % (0-5.6)
[2023-08-29] MEDS: LORazepam 2 MG/ML inj IVP (12:16)
--- NOTE | 2023-08-29 13:19 | REH.OT ---
OT attempted 2X to evaluate today. Pt. is unable to participate in evaluation today. Will reattempt tomorrow.
--- NOTE | 2023-08-29 13:27 | PC.NURSE ---
Shift Summary: Patient pleasant and cooperative this morning, around 1130 patient became agitated, pacing in halls, cursing at staff. MD called, patient escorted back to room with staff. Patient expressed paranoid thoughts, accused staff of taking car and wallet (wallet in room with patient, came with only cards and no barbosa), refusing any medication or staff assistance. Patient eventually calmed down enough to talk to staff and allowed dose of PRN lorazepam, following administration patient told staff I dont know if I should hug you or shoot you. Within 30min patient became cooperative. Was helped back into bed with 2 assist and gait belt, clothes changed due to incontinence. Patient now with continuous pulse ox due to drowsiness, sating >90% on RA. Patients family updated and at bedside, per [id number] patient is crabby at baseline and has accused them of taking his car several times. Laceration on back of head clean, dry and intact.
[2023-08-29 14:07] LABS: HCO3 VBG 22 mmol/L (21-28); PCO2 VBG 41 mmHG (40-50); PO2 VBG 42.1 mmHG (25-47); pH VBG 7.339 (7.32-7.43)
[2023-08-29 15:16] LABS: Troponin I* 0.24 ng/mL (0.01-0.04)
[2023-08-29] MEDS: GABAPENTIN 100 MG CAPSULE PO (20:18)
[2023-08-29] MEDS: THIAMINE 100 MG TABLET 250 MG PO (20:18)
[2023-08-29] MEDS: INSULIN ASPART 100 UNIT/ML SUBCUT (20:19)
[2023-08-30 02:43] VITALS: BP 144/79; PULSE 60; RESP 18; TEMP 36.8; O2SAT 96
[2023-08-30 02:49] VITALS: BP 144/79; PULSE 60; RESP 18; TEMP 36.8; O2SAT 96
[2023-08-30 06:10] LABS: HCO3 VBG 23 mmol/L (21-28); PCO2 VBG 43 mmHG (40-50); PO2 VBG 37.8 mmHG (25-47); pH VBG 7.332 (7.32-7.43)
[2023-08-30 06:16] LABS: Basophils Absolute Auto 0.03 K/uL (0.00-0.30); Basophils Percent Auto 0.5 % (0.0-3.0); Eosinophils Absolute Auto 0.08 K/uL (0.00-0.50); Eosinophils Percent Auto 1.2 % (0.0-7.0); Hematocrit 36.6 % (37.0-53.0); Hemoglobin* 12.4 gm/dL (13.5-17.5); Immature Granulocytes Abs Auto 0.01 K/uL (0.00-0.30); Immature Granulocytes Pct Auto 0.2 %; Lymphocytes Percent Auto 15.5 % (20-44); Mean Corpuscular HGB Conc 34 gm/dL (32-36); Mean Corpuscular Hemoglobin 30 pg (26-34); Mean Corpuscular Volume 90 fL (80-100); Monocytes Percent Auto 6.2 % (0.0-11.0); Neutrophils Percent Auto 76.4 % (42.0-72.0); Platelet Count* 216 K/uL (140-440); RDW Coefficient of Variation % 12.6 % (11.5-15.5); Red Blood Count 4.08 m/uL (4.30-5.90)
--- NOTE | 2023-08-30 06:26 | PC.NURSE ---
End of shift [id number]: Pt alert to self. Pleasant and cooperative throughout shift. Pt allowed senior copywriter to given meds, change brief, and take vitals with full cooperation. A1-A2 w/ walker and gait gait belt. Pt had 2 inc episodes, otherwise cont. Mepilex placed to left buttocks for reddened area. Sets off bed alarm. CWAS unremarkable. Was quite sleepy throughout shift.
[2023-08-30 06:31] LABS: Slide Review Reflex No
[2023-08-30 07:03] LABS: Albumin* 3.2 g/dL (3.3-5.0); Chloride* 111 mmol/L (96-114); Sodium* 136 mmol/L (135-149)
[2023-08-30 07:05] LABS: Anion Gap 5 mEq/L (7-15); Aspartate Amino Transferase* 27 U/L (12-35); Bilirubin Total* 0.4 mg/dL (0.1-1.5); Carbon Dioxide* 20 mmol/L (20-32); Creatinine* 1.9 mg/dL (0.5-1.5); Estimated Glomerular Filt Rate 39 ml/min
[2023-08-30 07:06] LABS: Alanine Aminotransferase* 18 U/L (4-50); Alkaline Phosphatase* 77 U/L (40-150); Blood Urea Nitrogen* 44 mg/dL (7-30); Calcium* 8.7 mg/dL (8.4-10.6); Glucose* 265 mg/dL (60-115); Magnesium* 1.6 mg/dL (1.5-2.6); Total Protein* 5.8 g/dL (6.0-8.3)
[2023-08-30 07:26] LABS: Troponin I* 0.15 ng/mL (0.01-0.04)
[2023-08-30 07:27] VITALS: PULSE 63
[2023-08-30 07:28] VITALS: BP 135/82; PULSE 62; RESP 16; TEMP 37; O2SAT 97
[2023-08-30] MEDS: ROSUVASTATIN CALCIUM 10 MG TABLET 20 MG PO (08:34)
[2023-08-30] MEDS: GABAPENTIN 100 MG CAPSULE PO (08:34)
[2023-08-30] MEDS: FOLIC ACID 1 MG TABLET PO (08:34)
[2023-08-30] MEDS: THIAMINE 100 MG TABLET 250 MG PO (08:34)
[2023-08-30] MEDS: ISOSORBIDE MONONITRATE ER 30 MG TAB PO (08:34)
[2023-08-30] MEDS: INSULIN ASPART 100 UNIT/ML SUBCUT ×2 (08:37→11:26)
[2023-08-30] MEDS: SODIUM CHLORIDE 0.9 % (FLUSH) 10 ML SYRINGE 5 ML IVF (08:37)
--- NOTE | 2023-08-30 10:26 | PC.SOCIAL ---
Discharge planning: Spoke with Elizabeth at [facility] services Adult Protection. Elizabeth states she has met with this pt a few months ago and found he was resistant to any additional services at home as he is very independent. Per Elizabeth, pt has a Project Home case resource manager, Moni from the [facility] [phone] who meets with him at home. Called Moni who confirms that he is open to their housing stability services but is not interested in applying for waiver services to get assistance in his home. Moni states she or another worker visit him at home about once a month to make sure he does not lose his housing but that pt refuses to increase services with any mobile homes repairer care. Moni states she will visit home this week after discharge and will again offer to assist with setting up home services if he agrees to apply for the [facility] program. fire crew worker attempted to meet with pt who was asleep. fire crew worker to follow up as needed.
[2023-08-30 12:05] VITALS: BP 122/72; PULSE 62; RESP 18; TEMP 36.7; O2SAT 98
--- NOTE | 2023-08-30 12:13 | P.DS_ITS ---
DS: Providers Provider Date Seen: 08/30/23 Date of admission: 08/29/23 03:19 Primary care physician: Sonny Montaño MD Admitting Clinician: Jovany Thurston MD Consults: PT, OT, SW Attending Physician on discharge: Dania Butts MD Date of Discharge: 08/30/23 DS: Diagnosis Discharge Diagnosis (1) Laceration of head: Status: Acute Problem details: - 2/2 fall on 08/28, negative head CT in ED, repaired via hair apposition so no suture or staple removal required - laceration hemostatic during stay (2) Elevated troponin: Status: Acute Problem details: - ddx: NSTEMI, demand ischemia from intoxication/fall/acidosis, possibly has mild chronic elevation 2/2 CKD - history of CHF and ASCVD, s/p pacemaker placement - asymptomatic during stay, troponin downtrended hospital day 2 - patient refused TTE (3) Lactic acidosis due to diabetes mellitus: Status: Acute Problem details: - vs starvation ketoacidosis vs ETOH - lactate and pH normalized on 08/29, remained wnl during stay - patient eating normally and asymptomatic, requesting d/c home on 08/30 (4) Acute metabolic encephalopathy: Status: Acute Problem details: - vs chronic cognitive impairment with progression of disease; patient also has significant hearing loss which may impact comprehension - RPR pending, ammonia within normal limits - concern from staff at [address] [place] [address] that patient has had decline in function and cognition over the past few months, county aware - therapies ordered, MOCA noted to be 09/10 - patient amenable to referral - family updated (primary contact is Tuteie-kn-ciw Homa at [phone]); they are not interested in pursuing guardianship at this time but will f/u with pt closely - appreciate input from social work team (5) Alcohol abuse: Status: Acute Problem details: - chronic, per sister in law (with period of abstinence until very recently) - patient has been in treatment before, was drinking on admission 08/28 - [facility] followed, did not have any significant symptoms of withdrawal (6) Noncompliance: Status: Acute Problem details: - unclear compliance with medications at home - patient amenable to close f/u with PCP and Home Care referral to assist with medication compliance (this order placed upon discharge) DS: Summary Hospital Course Hospital Course: Abhijit is a 63-year-old male with a history of diabetes, ASCVD, pacemaker placement, and cognitive impairment, BIBA to the ED on 08/29 after falling in the [employer] parking lot and sustaining a head laceration. During ER visit, he was found to be hyperglycemic and acidotic, as well as confused. Details of findings and follow-up plans noted above. Given patient's MOCA and concern for noncompliance with medication, home health referral was made and patient agrees to participate in this service ([facility] He also has been with [facility] for housing stability, and the [facility] is aware of his vulnerable adult status. Djyrnf-ni-xda Homa ([phone]) is aware of patient's cognitive impairment, as well as comorbidities. She and her Kristian (Abhijit's brother) plan to check in with Abhijit regularly. Status at Discharge Cognitive/behavioral status at discharge: + Cognitive impairment (appears baseline) Functional status at discharge: independent ambulation Overall status at discharge: patient is progressing back to baseline Time Spent with Patient Time attestation: Total time spent providing and/or coordinating discharge services: Time spent: Greater than 30 minutes Specific discharge activities: Medication reconciliation, f/u appts, family updates Exam Narrative: Exam Narrative: GEN: Sitting up in bed, severe hearing impairment noted. Able to communicate via pocket talker CV: RRR, No concerning murmurs, rubs, or gallops R: LCTA bilaterally without concerning wheezing, rales, or rhonchi Ext: wwp, + clubbing bilateral hands, no edema Neuro: No focal deficits Psych: No agitation or paranoia this morning, able to verbalize back to me the importance of not driving Const: Vital Signs, click to edit/add: Vital Signs - 24 hr 08/29/23 15:05 08/29/23 15:37 08/29/23 19:15 Temperature 97.8 F Pulse Rate 60 Pulse Rate [Pulse Oximeter] 63 63 Respiratory Rate 16 16 Blood Pressure [Le ft Arm] 144/87 H 141/82 H Blood Pressure [Ri ght Arm] Pulse Oximetry 100 99 Oxygen Delivery Me thod Room Air Room Air 08/29/23 19:19 08/29/23 22:21 08/29/23 23:00 Temperature 98.1 F Pulse Rate 61 Pulse Rate [Pulse Oximeter] 63 61 Respiratory Rate 16 16 Blood Pressure [Le ft Arm] 141/82 H 136/69 Blood Pressure [Ri ght Arm] Pulse Oximetry 99 98 Oxygen Delivery Me thod Room Air Room Air 08/29/23 23:00 08/30/23 02:43 08/30/23 02:49 Temperature 98.1 F 98.3 F 98.3 F Pulse Rate Pulse Rate [Pulse Oximeter] 61 60 60 Respiratory Rate 16 18 18 Blood Pressure [Le ft Arm] 136/69 Blood Pressure [Ri ght Arm] 144/79 H 144/79 H Pulse Oximetry 98 96 96 Oxygen Delivery Me thod Room Air Room Air Room Air 08/30/23 07:27 08/30/23 07:28 08/30/23 12:05 Temperature 98.6 F 98.0 F Pulse Rate 63 Pulse Rate [Pulse Oximeter] 62 62 Respiratory Rate 16 18 Blood Pressure [Le ft Arm] 135/82 122/72 Blood Pressure [Ri ght Arm] Pulse Oximetry 97 98 Oxygen Delivery Me thod Room Air Room Air DS: Data Data Completed and Pending Labs on day of discharge: Labs from last 24 hours 08/30/23 08/29/23 05:40 14:01 WBC 6.60 RBC 4.08 L Hgb 12.4 L Hct 36.6 L MCV 90 MCH 30 MCHC 34 RDW Coeff of Jitendra 12.6 Plt Count 216 Neut % (Auto) 76.4 H Lymph % (Auto) 15.5 L Nicholas % (Auto) 6.2 Eos % (Auto) 1.2 Baso % (Auto) 0.5 Neut # (Auto) 5.00 Lymph # (Auto) 1.00 Nicholas # (Auto) 0.40 Eos # (Auto) 0.08 Baso # (Auto) 0.03 Abs Immat Gran (auto) 0.01 Imm/Tot Granulo (auto) 0.2 VBG pH 7.332 7.339 VBG pCO2 43 41 VBG pO2 37.8 42.1 VBG HCO3 23 22 Sodium 136 Potassium 5.0 Chloride 111 Carbon Dioxide 20 Anion Gap 5 L BUN 44 H Creatinine 1.9 H Estimated Creat Clear 27.20 Estimated GFR 39 Glucose 265 H Lactate 1.0 1.0 Calcium 8.7 Magnesium 1.6 Total Bilirubin 0.4 AST 27 ALT 18 Alkaline Phosphatase 77 Ammonia 24.0 Troponin I 0.15 H* 0.24 H* Total Protein 5.8 L Albumin 3.2 L RPR Screen Pending Discharge Plan Discharge Disposition: Home, Self-Care Date of Admission: 08/29/23 03:19 Attending Provider on Discharge: Dania Butts Primary Care Provider: Sonny Montaño Condition: Stable Anticipated Discharge Date/Time: 08/30/23 11:58 Discharge Medications: Continued isosorbide mononitrate 30 mg tablet extended release 24 hr 30 mg PO DAILY rosuvastatin [Crestor] 20 mg tablet 20 mg PO DAILY Tradjenta 5 mg tablet 5 mg PO DAILY acetaminophen [Tylenol] 1,000 mg PO BID Farxiga 10 mg tablet 10 mg PO DAILY aspirin 81 mg capsule 81 mg PO DAILY Held insulin glargine [Lantus Solostar U-100 Insulin] 100 unit/mL (3 mL) insulin pen 10 unit subcut QPM Hold Instructions: Resume on 11/13/23. STOP insulin until you see Dr. Montaño in followup to discuss medications Discontinued glipizide 10 mg PO BID Rx Instructions: BID before meals hydralazine 10 mg tablet 10 mg PO TID nitroglycerin 0.4 mg tablet, sublingual 0.4 mg sublingual Q5-15M PRN Rx Instructions: do not exceed 3 doses per episode Discharge Orders: Discharge Order (Routine); Ordered 08/30/23 Ordered By: Dania Butts Patient Education: Altered Mental Status (GEN), Fall Prevention (DC) Additional Instructions: See Dr. Montaño as scheduled for a hospital followup. Our team recommends NO driving until your next appointment, then discuss further driving restrictions. Also, please do NOT use any alcohol as this makes your diabetes and other medical problems harder to control. Activity Level: No strenuous activity Discharge Diet: Diabetic Follow Up Appointments: Sonny Montaño MD [Primary Care Provider] - 09/06/23 11:15 am (See Dr. Montaño within 7-10 days for hospital discharge f/u) Forms: [employer] Info Instructions
--- NOTE | 2023-08-30 13:09 | NUTR.NU ---
RDN with nutrition screen related to diabetes diet education. RDN attempted to visit with patient for diet education earlier today, however patient was not available at that time. Patient discharged before RDN could reattempt.
--- NOTE | 2023-08-30 16:02 | PC.SOCIAL ---
Discharge planning: Late Entry: Prior to disharge, met with pt who refused discussion of changing his living situaton and insisted on being discharged home. Pt agreed to a home care nurse visit for medication management with [facility]. Pt gave permission for social worker masters to contact his rehabilitation case coordinator regarding his discharge plan. Called rehabilitation case coordinator and left message regarding d/c home today with home care order. Called and faxed information to [facility] for RN visits for medication menagement.
[2023-08-31 02:42] LABS: Rapid Plasma Reagin (RPR) Non Reactive (Non Reactive)
--- NOTE | 2023-09-18 09:00 | PC.NURSE ---
ENTERED CHART TO PRINT RECORDS PER [facility] FOR CONTINUITY OF CARE
== END 2023-08-30 12:59 | disposition home or self-care (01) | DRG 637 ==
LOC: ED 01:36 → MEDSURG 03:20
PROVIDERS: Family Medicine; Admitting Provider Internal Medicine; Emergency Provider Family Medicine; PCP Family Medicine; Visit Provider Internal Medicine
DX: E11.10 Type 2 diabetes mellitus with ketoacidosis without coma (principal); G93.41 Metabolic encephalopathy; N18.4 Chronic kidney disease, stage 4 (severe); I13.0 Hypertensive heart and chronic kidney disease with heart failure and stage 1 through stage 4 chronic kidney disease, or unspecified chronic kidney disease; E44.0 Moderate protein-calorie malnutrition; Z68.1 Body mass index [BMI] 19.9 or less, adult; Z79.4 Long term (current) use of insulin; Z79.84 Long term (current) use of oral hypoglycemic drugs; E11.22 Type 2 diabetes mellitus with diabetic chronic kidney disease; E11.65 Type 2 diabetes mellitus with hyperglycemia; I50.9 Heart failure, unspecified; J44.9 Chronic obstructive pulmonary disease, unspecified; I25.10 Atherosclerotic heart disease of native coronary artery without angina pectoris; S01.81XA Laceration without foreign body of other part of head, initial encounter; W00.0XXA Fall on same level due to ice and snow, initial encounter; Y92.481 Parking lot as the place of occurrence of the external cause; E88.09 Other disorders of plasma-protein metabolism, not elsewhere classified; R79.89 Other specified abnormal findings of blood chemistry; Z91.148 Patient's other noncompliance with medication regimen for other reason; F10.129 Alcohol abuse with intoxication, unspecified; Y90.1 Blood alcohol level of 20-39 mg/100 ml
CPT/HCPCS: 12001; 36415; 70450; 80048; 80053; 80306; 81003; 81015; 82077; 82140; 82803; 82947; 82962; 83036; 83605; 83735; 83930; 84484; 85025; 86140; 86592; 87631; 93005; 95992; 97112; 97161; 97530; 99284; 99285; A9270; J2060; J3480; J7030